=== PATIENT | female | born 1995 | race Caucasian/White ===

== ENCOUNTER 2017-06-20 09:13 | Emergency (ER) | payer MEDICAID ==
[2017-06-20] MEDS ORDERED: SODIUM CHLORIDE 0.9% 1,000 ML IV ONE (09:51)
[2017-06-20 10:02] LABS: BASOPHILS # (AUTO) 0.1 10^3/uL (0.0-0.1); BASOPHILS % (AUTO) 0.4 %; HGB - HEMOGLOBIN 15.4 g/dL (12.0-16.0); LYMPHOCYTES # (AUTO) 1.6 10^3/uL (1.5-3.5); LYMPHOCYTES % (AUTO) 10.3 %; MEAN CORPUSCULAR HEMOGLOBIN 30.1 pg (27.0-31.0); MEAN CORPUSCULAR HGB CONC 34.1 g/dL (32.0-36.0); MEAN CORPUSCULAR VOLUME 88.3 fL (81.0-99.0); MEAN PLATELET VOLUME 6.7 fL (7.9-10.8); MONOCYTES # (AUTO) 0.3 10^3/uL (0.0-1.0); MONOCYTES % (AUTO) 2.1 %; NEUTROPHILS # (AUTO) 13.6 10^3/uL (1.5-6.6); NEUTROPHILS % (AUTO) 87.2 %; PLT - PLATELET COUNT 397 10^3/uL (130-450); RED BLOOD COUNT 5.12 10^6/uL (4.20-5.40); WHITE BLOOD COUNT 15.6 x10^3/uL (4.8-10.8)
[2017-06-20 10:11] LABS: CALCIUM 9.5 mg/dL (8.5-10.3); CREATININE 0.6 mg/dL (0.4-1.0)
--- NOTE | 2017-06-20 10:17 | ED Physician Documentation ---
History of Present Illness - Stated complaint Stated Complaint: VOMITING/SHAKY - Chief complaint Chief Complaint: Abd Pain - Additonal information Additional information: hx from pt 22 female was being worked up for wt loss and had stool studies and was dx with c diff and was txed for about 2 weeks with flagyl was doing fine then last night developed chills shakes NVD also has a cough and urinary hesitancy no bad food has been visiting a penitentiary denies preg Review of Systems Constitutional: reports: Chills. denies: Fever Cardiac: denies: Chest pain / pressure Respiratory: reports: Cough. denies: Dyspnea GI: reports: Vomiting, Diarrhea. denies: Bloody / black stool : denies: Now EGA Endocrine: denies: Easy bruising / bleeding Immunocompromised: denies: Immunocompromised PD PAST MEDICAL HISTORY - Past Medical History Past Medical History: Yes Other Past Medical History: c diff. - Past Surgical History Past Surgical History: No - Present Medications Home Medications: Ambulatory Orders Medication Instructions Recorded Confirmed Escitalopram [Lexapro] 20 mg PO DAILY 06/20/17 Saccharomyces Boulardii [Florastor] 500 mg PO BID #40 capsule 06/20/17 Vancomycin [Vancocin] 125 mg PO QID #40 capsule 06/20/17 - Allergies Allergies/Adverse Reactions: Allergies Allergy/AdvReac Type Severity Reaction Status Date / Time No Known Drug Allergies Allergy Verified 06/20/17 09:35 - Social History Does the pt smoke?: No Smoking Status: Never smoker - POLST Patient has POLST: No PD ED PE NORMAL - Vitals Vital signs reviewed: Yes (little tachy) - General General: Alert and oriented X 3 - HEENT HEENT: No: Moist mucous membranes (little dry) - Neck Neck: Supple, no meningeal sign - Cardiac Cardiac: RRR - Respiratory Respiratory: No respiratory distress, Clear bilaterally - Abdomen Abdomen: Non tender - Derm Derm: Normal color - Neuro Neuro: Alert and oriented X 3 Results - Vitals Vitals: Vital Signs - 24 hr 06/20/17 06/20/17 09:31 11:05 Temperature 36.2 C L Heart Rate 102 H 77 Respiratory 18 18 Rate Blood Pressure 126/94 H 105/77 O2 Saturation 100 100 Oxygen O2 Source Room air - Labs Labs: Laboratory Tests 06/20/17 06/20/17 06/20/17 09:57 09:57 10:10 WBC 15.6 H RBC 5.12 Hgb 15.4 Hct 45.2 MCV 88.3 MCH 30.1 MCHC 34.1 RDW 13.0 Plt Count 397 MPV 6.7 L Neut # 13.6 H Lymph # 1.6 Teller # 0.3 Eos # 0.0 Baso # 0.1 Absolute Nucleated RBC 0.01 Nucleated RBC % 0.0 Sodium 136 Potassium 3.8 Chloride 103 Carbon Dioxide 21 Anion Gap 12.0 BUN 9 Creatinine 0.6 Estimated GFR (MDRD) 126 Glucose 156 H Calcium 9.5 Urine Color Urine Clarity Urine pH Ur Specific [place] Urine Protein Urine Glucose (UA) Urine Ketones Urine Occult Blood Urine Nitrite Urine Bilirubin Urine Urobilinogen Ur Leukocyte Esterase Urine RBC Urine WBC Ur Squamous Epith Cells Urine Bacteria Ur Microscopic Review Urine Culture Comments Urine HCG, Qual Influenza A (Rapid) Negative Influenza B (Rapid) Negative Influenza Types A,B Ag - 06/20/17 10:21 WBC RBC Hgb Hct MCV MCH MCHC RDW Plt Count MPV Neut # Lymph # Teller # Eos # Baso # Absolute Nucleated RBC Nucleated RBC % Sodium Potassium Chloride Carbon Dioxide Anion Gap BUN Creatinine Estimated GFR (MDRD) Glucose Calcium Urine Color YELLOW Urine Clarity SL. CLOUDY Urine pH 8.0 H Ur Specific [place] 1.020 Urine Protein NEGATIVE Urine Glucose (UA) NEGATIVE Urine Ketones 15 H Urine Occult Blood NEGATIVE Urine Nitrite NEGATIVE Urine Bilirubin NEGATIVE Urine Urobilinogen 0.2 (NORMAL) Ur Leukocyte Esterase NEGATIVE Urine RBC None Seen Urine WBC 0-3 Ur Squamous Epith Cells MOD Squamous H Urine Bacteria Moderate H Ur Microscopic Review INDICATED Urine Culture Comments NOT INDICATED Urine HCG, Qual NEGATIVE Influenza A (Rapid) Influenza B (Rapid) Influenza Types A,B Ag PD MEDICAL DECISION MAKING - ED course ED course: urine not a clean catch labs fine except for mildly elevated glucose havign diarrhea after flagyl for c diff - assay will still be + so did nto recheck will rx vanco 125 QID X 10 d and foorastor Departure - Departure Disposition: 01 Home, Self Care Clinical Impression: Dehydration, C. difficile diarrhea Condition: Good Instructions: ED Dehydration, Clostridium Difficile Infec Prescriptions: Saccharomyces Boulardii [Florastor] 500 mg PO BID #40 capsule Vancomycin [Vancocin] 125 mg PO QID #40 capsule Comments: Your labs are fine except for mildly elevated glucose - please have your PMD do a fasting blood glucose or HGB A1C test Since you are still having diarrhea I have changed you to a new antibiotic called vancomycin and added a probiotic Rest and drink plenty of fluids
[2017-06-20 10:29] LABS: BILIRUBIN,URINE NEGATIVE (NEGATIVE); GLUCOSE, URINE (UA) NEGATIVE (NEGATIVE); KETONES,URINE (UA) 15 mg/dL (NEGATIVE); LEUKOCYTE ESTERASE, URINE NEGATIVE (NEGATIVE); NITRITE,URINE NEGATIVE (NEGATIVE); OCCULT BLOOD,URINE NEGATIVE (NEGATIVE); PROTEIN,URINE NEGATIVE (NEGATIVE); UROBILINOGEN,URINE 0.2 (NORMAL) E.U./dL (NORMAL)
[2017-06-20 10:30] LABS: CLARITY,URINE SL. CLOUDY (CLEAR); HCG UR QUAL NEGATIVE
[2017-06-20 10:38] LABS: BACTERIA,URINE Moderate /HPF (None Seen); RBC,URINE None Seen /HPF (0-5); SQUAMOUS EPITHELIAL CELL,UR MOD Squamous (<= Few)
--- NOTE | 2017-06-20 11:22 | XRAY Preliminary Report ---
Exam: XR CHEST 2 VIEW X-RAY IMPRESSION: Large lung volumes which may be physiologic or due to airways disease such as asthma with out acute cardiopulmonary abnormality. [facility] SITE ID: [id number]
--- NOTE | 2017-06-20 11:25 | XRAY Report ---
EXAM: CHEST RADIOGRAPHY EXAM DATE: 06/20/2017 10:56 AM. CLINICAL HISTORY: Cough chills. COMPARISON: None. TECHNIQUE: 2 views. FINDINGS: Lungs/Pleura: Lung volumes are large. No focal consolidation. No pleural effusion. No pneumothorax. Mediastinum: Heart and mediastinal contours are unremarkable. Other: None. IMPRESSION: Large lung volumes which may be physiologic or due to airways disease such as asthma with out acute cardiopulmonary abnormality. [facility] Referring Provider Line: [phone] SITE ID: [id number]
[2017-06-20 12:34] VITALS: BP 99/63
== END 2017-06-20 12:46 | disposition home or self-care (01) ==
LOC: ED 09:13
DX: E86.0 Dehydration (principal); A04.72 Enterocolitis due to Clostridium difficile, not specified as recurrent
CPT/HCPCS: 36415; 71046; 80048; 81001; 81003; 81025; 85025; 87086; 87275; 87276; 96360; 99283